=== PATIENT | female | born 1945 | race African-American/Black ===

== ENCOUNTER 2023-04-02 16:16 | Emergency (ER) | payer MEDICARE ==
[~2023-04-02] VITALS: Ht 154.9 cm; Wt 77.5 kg
[2023-04-02 16:22] VITALS: BP 111/55; PULSE 62; RESP 16; TEMP 98.5; O2SAT 100
[2023-04-02] MEDS ORDERED: insulin (16:22)
[2023-04-02] MEDS ORDERED: atenolol (16:22)
== END 2023-04-02 17:01 | disposition home or self-care (01) ==
LOC: ER 16:16
DX: M79.641 Pain in right hand (principal); I10 Essential (primary) hypertension; E11.9 Type 2 diabetes mellitus without complications; W18.30XA Fall on same level, unspecified, initial encounter; Y93.89 Activity, other specified; Y92.89 Other specified places as the place of occurrence of the external cause; Y99.8 Other external cause status
CPT/HCPCS: 99283